=== PATIENT | female | born 1980 | race African-American/Black ===

== ENCOUNTER → 2021-06-04 | Emergency (ER) | payer BC ==
[~2021-06-04] VITALS: Ht 170.2 cm; Wt 61.2 kg
[~2021-06-04] MED LIST: HYDR-4303 PO; HYDROCODONE/APAP 10/325MG TABLET ONE; HYDROCODONE/APAP 10/325MG TABLET PO ONE; ONDA4TAB5 PO; ONDANSETRON 4 MG TAB.RAPDIS ONE; ONDANSETRON 4 MG TAB.RAPDIS SL ONE; SILVER SULFADIAZINE CREAM 25 GM TUBE ONE; TDAP [DIPH/PERTUSSIS/TET] 0.5 ML VIAL IM ONE
--- NOTE | 2021-06-04 19:05 | NUR ---
DR TOVAR AT FOR CHIDI.
--- NOTE | 2021-06-04 19:07 | NUR ---
PROVIDED PATIENT WITH COLD PACKS
--- NOTE | 2021-06-04 19:09 | NUR ---
DR TOVAR AT BEDSIDE
--- NOTE | 2021-06-04 19:21 | NUR ---
GROUP PROGRAM MANAGER AT BEDSIDE FOR BANDAGE
--- NOTE | 2021-06-04 19:40 | NUR ---
ENDORSEMENT GIVEN TO ELBA LOZOYA.
[2021-06-04 19:57] VITALS: BP 132/80
--- NOTE | 2021-06-04 19:57 | NUR ---
Patient discharged to home in stable condition. Written and verbal after care instructions given. Patient verbalizes understanding of instruction.
== END | disposition home or self-care (01) ==
LOC: ER 18:40
DX: T23.252A Burn of second degree of left palm, initial encounter (principal); J45.909 Unspecified asthma, uncomplicated; X19.XXXA Contact with other heat and hot substances, initial encounter; Y93.89 Activity, other specified; Y92.89 Other specified places as the place of occurrence of the external cause; Y99.8 Other external cause status
CPT/HCPCS: 16020; 90471; 90715; 99283; Q0162